=== PATIENT | male | born 1995 | race African-American/Black ===

== ENCOUNTER 2020-10-17 10:12 | Emergency (ER) | payer OTHER ==
[2020-10-17] MEDS ORDERED: NAPROSYN500 MG PO (13:11)
== END 2020-10-17 13:40 | disposition home or self-care (01) ==
LOC: ER1 10:12
DX: S89.92XA Unspecified injury of left lower leg, initial encounter (principal); J45.909 Unspecified asthma, uncomplicated; F17.200 Nicotine dependence, unspecified, uncomplicated; W10.9XXA Fall (on) (from) unspecified stairs and steps, initial encounter; Y92.009 Unspecified place in unspecified non-institutional (private) residence as the place of occurrence of the external cause
CPT/HCPCS: 73562; 96372; 99283; J1885

== ENCOUNTER 2020-10-18 08:37 | Emergency (ER) | payer OTHER ==
[~2020-10-18 08:37] MED LIST: NAPROSYN500 MG PO
== END 2020-10-18 11:06 | disposition home or self-care (01) ==
LOC: ER1 08:37
DX: M25.562 Pain in left knee (principal); F17.210 Nicotine dependence, cigarettes, uncomplicated
CPT/HCPCS: 99283